=== PATIENT | male | born 1950 | race Caucasian/White ===

== ENCOUNTER 2021-02-24 16:44 | Observation (INO) ==
[2021-02-24] MEDS ORDERED: SODIUM CHLORIDE 0.9% 1000ML 500 ML IV ONE (18:09)
--- NOTE | 2021-02-24 18:16 | Emergency Department Note ---
History of Present Illness General Chief complaint: Dizziness Stated complaint: DIZZY, UNCONTROLLED DROP OF HEAD, NAUSEA Time Seen by Provider: 02/24/21 17:57 Source: patient Mode of arrival: ambulatory Limitations: no limitations History of Present Illness This patient is a 71-year-old previously healthy male who had an episode of 430 where he did not feel well. He was in his usual state of health and was sitting on the porch with his . He said his felt like his head went back uncontrolled there is no trauma he had a weird sensation like his tongue was numb on both sides and he got nauseated this last about 15 minutes he had no other associated symptom. He has had no headache neck pain or stiffness. No recent fever or chills. No focal numbness or weakness. No difficulty speaking or swallowing. No change in vision. He had no spinning sensation he felt near syncopal but did not pass out. No heart racing chest pain or shortness of breath. No pain anywhere. Denies abdominal pain or back pain. No injury. No dysuria or hematuria. No blood or melena in his stool. He did have his third Covid vaccine on Thursday. Home Medications Medication Instructions Recorded Confirmed Type atorvastatin 20 mg tablet 20 mg PO HS 10/11/19 02/24/21 History brimonidine 0.2 % eye drops 1 drops OP Q12H ml 10/11/19 02/24/21 History diltiazem HCl 300 mg 300 mg PO QAM 10/11/19 02/24/21 History capsule,extended release 24 hr hydrochlorothiazide 25 mg tablet 25 mg PO QAM 10/11/19 02/24/21 History losartan 50 mg tablet 50 mg PO QAM 10/11/19 02/24/21 History meloxicam 15 mg tablet (Mobic) 15 mg PO DAILY PRN 10/11/19 02/24/21 History vitamin E 1,000 unit capsule 2,000 unit PO QAM 02/24/21 02/24/21 History vitamins A,C,T-caal-gbqeht 14,320 1 cap PO BID 02/24/21 02/24/21 History unit-226 mg-200 unit capsule (PreserVision AREDS) Allergies Allergy/AdvReac Type Severity Reaction Status Date / Time hydrocortisone Allergy Severe Tachycardia, Unverified 02/24/21 18:09 abnormal EKG DAVID Inhibitors Allergy Intermediate Verified 02/24/21 18:07 Past Med/Surg History Medical History No pertinent past medical history Surgical History No pertinent past surgical history Social History Smoking Status: Former smoker Preferred Language: Polish Feels Safe at Home: Yes Immunizations: Past medical history hypertension. He denies history of diabetes, cardiac disease, blood clots, strokes, vascular problems, blood thi nner use Social history he is and lives locally with his . His doctors in [place]. 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 His has ALS and he cares for her at home. He does not smoke. Drinks rarely Review of Systems A total of 10 systems reviewed and were otherwise negative Physical Exam Vital Signs Vital Signs - 24 hr 02/24/21 16:48 02/24/21 17:22 02/24/21 17:23 Temperature 36.4 C L 36.8 C Temperature Source Temporal Artery Scan Oral Pulse Rate 69 Pulse Rate [Apical] 66 Pulse Rate from SpO2 Sensor Pulse Rhythm [Apical] Regular Pulse Strength [Apical] Normal Respiratory Rate 18 16 Respiratory Effort / Characteristics Non-Labored Spontaneous Non-Labored Respiratory Depth Normal Normal Blood Pressure 151/80 H Blood Pressure [Right Arm] 153/72 H Blood Pressure Mean 103 Blood Pressure Mean [Right Arm] 99 Blood Pressure Position Sitting Pulse Oximetry 98 97 97 Oxygen Delivery Method Room Air Room Air Room Air Sepsis Recent Fever Within 48 Hours No Sepsis New/Unexplained Change in Mental Status N/A Sepsis Action Taken by Nursing No Action Required 02/24/21 19:00 02/24/21 21:22 Temperature Temperature Source Pulse Rate 63 64 Pulse Rate [Apical] Pulse Rate from SpO2 Sensor 64 Pulse Rhythm [Apical] Pulse Strength [Apical] Respiratory Rate 16 18 Respiratory Effort / Characteristics Respiratory Depth Blood Pressure 145/78 H 147/80 H Blood Pressure [Right Arm] Blood Pressure Mean 100 102 Blood Pressure Mean [Right Arm] Blood Pressure Position Pulse Oximetry 98 98 Oxygen Delivery Method Sepsis Recent Fever Within 48 Hours Sepsis New/Unexplained Change in Mental Status Sepsis Action Taken by Nursing General: Well developed well nourished older male who appears in no acute distress, breathing comfortably on room air. Normal speech HEENT: Normal cephalic atraumatic. Pupils are equal round and reactive to light. Extraocular movements are intact. Oropharynx is pink with moist mucous membranes. No swelling of the mouth lips or tongue. Neck: Supple with a midline trachea. No meningeal signs or stiffness, no JVD or bruits. No Stridor. Chest: Clear to auscultation bilaterally. No wheezes or rhonchi. No increased work of breathing. Heart: Regular rate and rhythm without murmurs or gallops. Abdomen: Soft nontender, nondistended without rebound guarding or rigidity. Extremities: No cyanosis clubbing or edema. No calf tenderness or assymetry Spine/Back. Non tender to palpation. No CVA tenderness Skin: Good turgor without rashes. Neurologic exam: Cranial nerves two through 12 are intact. Motor and sensation are intact and symmetrical throughout. No tremor. Finger-nose intact. Course Administered Medications Discontinued Medications Sodium Chloride (Nss 1000ml) 500 mls @ 999 mls/hr IV .Q31M ONE Stop: 02/24/21 18:39 Last Infusion: 02/24/21 19:29 Dose: 999 mls/hr Documented by: [id number] Admin: 02/24/21 18:26 Dose: 999 mls/hr Documented by: [id number] Ioversol (Optiray 320 125ml) 119 ml IV ONCE ONE Stop: 02/24/21 19:13 Last Admin: 02/24/21 19:12 Dose: 1 ml Documented by: [id number] Potassium Chloride (Potassium Chloride Crtab 20 Meq Tabcr) 40 meq PO NOW STA Stop: 02/24/21 20:21 Last Admin: 02/24/21 21:23 Dose: 40 meq Documented by: [id number] Medical Decision Making Differential Diagnosis Near syncopal episode, arrhythmia, neurologic disease, vasovagal, TIA/CVA, vascular disease, electrolyte or metabolic abnormality, infection, anemia, reaction to Covid vaccine Medical Records Attestation: I reviewed the patient's medical records. Home Medications Current Medication List: was personally reviewed by me Laboratory Data Attestation: I reviewed the patient's lab results. Result diagrams: 02/24/21 18:27 02/24/21 18:27 Lab Results 02/24/21 02/24/21 02/24/21 Range/Units 18:20 18:27 18:27 WBC 8.91 (4.8-10.8) K/uL RBC 4.85 (4.7-6.1) M/uL Hgb 15.1 (14.0-18.0) g/dL Hct 43.8 (42-52) % MCV 90.3 (80-100) fL MCH 31.1 (25-34) pg MCHC 34.5 (32-36) g/dL RDW Std Deviation 43.9 (36.4-46.3) fL RDW Coeff of Trisha 13.3 (11.5-14.5) % Plt Count 256 (130-400) K/uL MPV 9.5 (7.4-10.4) fL Immature Gran % (Auto) 0.1 % Neut % (Auto) 70.8 % Lymph % (Auto) 18.0 % [place] % (Auto) 9.7 % Eos % (Auto) 1.2 % Baso % (Auto) 0.2 % Neut # (Auto) 6.31 (1.4-6.5) K/uL Lymph # (Auto) 1.60 (1.2-3.4) K/uL [place] # (Auto) 0.86 H (0.11-0.59) K/uL Eos # (Auto) 0.11 (0-0.5) K/uL Baso # (Auto) 0.02 (0-0.2) K/uL Immature Gran # (Auto) 0.01 (0.00-0.02) K/uL PT 11.1 (9.0-12.0) Seconds INR 1.1 (0.9-1.1) APTT 27.1 (21.0-31.0) Seconds PTT Ratio 1.0 Sodium (136-145) mmol/L Potassium (3.5-5.1) mmol/L Chloride (98-107) mmol/L Carbon Dioxide (21-32) mmol/L Anion Gap (3-11) BUN (7-18) mg/dl Creatinine (0.6-1.4) mg/dl Est Cr Clr Drug Dosing ml/min Est GFR ( Amer) ml/min Est GFR (Non-Af Amer) ml/min BUN/Creatinine Ratio (10-20) Glucose (70-99) mg/dl Calcium (8.5-10.1) mg/dl Magnesium (1.8-2.4) mg/dl Total Bilirubin (0.2-1) mg/dl AST (15-37) U/L ALT (12-78) U/L Alkaline Phosphatase (45-117) U/L Troponin I (0-0.045) ng/ml Total Protein (6.4-8.2) gm/dl Albumin (3.4-5.0) gm/dl Globulin (2.5-4.0) gm/dl Albumin/Globulin Ratio (0.9-2) TSH (0.300-4.500) uIu/ml Lyme Disease IgG Ab Negative (Negative) Lyme Disease IgM Ab Negative (Negative) COVID-19 Eval Order SARS-CoV-2 (PCR) (Negative) 02/24/21 02/24/21 02/24/21 Range/Units 18:27 Unknown Unknown WBC (4.8-10.8) K/uL RBC (4.7-6.1) M/uL Hgb (14.0-18.0) g/dL Hct (42-52) % MCV (80-100) fL MCH (25-34) pg MCHC (32-36) g/dL RDW Std Deviation (36.4-46.3) fL RDW Coeff of Trisha (11.5-14.5) % Plt Count (130-400) K/uL MPV (7.4-10.4) fL Immature Gran % (Auto) % Neut % (Auto) % Lymph % (Auto) % O[place]Brien % (Auto) % Eos % (Auto) % Baso % (Auto) % Neut # (Auto) (1.4-6.5) K/uL Lymph # (Auto) (1.2-3.4) K/uL [place]Brien # (Auto) (0.11-0.59) K/uL Eos # (Auto) (0-0.5) K/uL Baso # (Auto) (0-0.2) K/uL Immature Gran # (Auto) (0.00-0.02) K/uL PT (9.0-12.0) Seconds INR (0.9-1.1) APTT (21.0-31.0) Seconds PTT Ratio Sodium 140 (136-145) mmol/L Potassium 3.4 L (3.5-5.1) mmol/L Chloride 104 (98-107) mmol/L Carbon Dioxide 27 (21-32) mmol/L Anion Gap 9.0 (3-11) BUN 20 H (7-18) mg/dl Creatinine 1.13 (0.6-1.4) mg/dl Est Cr Clr Drug Dosing 66.8 ml/min Est GFR ( Amer) 75.9 ml/min Est GFR (Non-Af Amer) 65.5 ml/min BUN/Creatinine Ratio 17.6 (10-20) Glucose 109 H (70-99) mg/dl Calcium 9.4 (8.5-10.1) mg/dl Magnesium 2.1 (1.8-2.4) mg/dl Total Bilirubin 0.5 (0.2-1) mg/dl AST 15 (15-37) U/L ALT 34 (12-78) U/L Alkaline Phosphatase 121 H (45-117) U/L Troponin I < 0.015 (0-0.045) ng/ml Total Protein 7.6 (6.4-8.2) gm/dl Albumin 3.5 (3.4-5.0) gm/dl Globulin 4.1 H (2.5-4.0) gm/dl Albumin/Globulin Ratio 0.9 (0.9-2) TSH 0.821 (0.300-4.500) uIu/ml Lyme Disease IgG Ab (Negative) Lyme Disease IgM Ab (Negative) COVID-19 Eval Order Covid19 at [facility] SARS-CoV-2 (PCR) NEGATIVE (Negative) Imaging Data Attestation: I personally reviewed and interpreted this imaging study as follows: My Impression: Chest x-rayno acute infiltrate, failure, pneumothorax seen Radiologist's Impression: Head CT 02/24/21 18:[address] DOSE: HISTORY: Near syncope. Stroke Like Symptoms TECHNIQUE: Multiaxial CT images of the head were performed without the use of intravenous contrast. Automated exposure control was utilized for this study. A dose lowering technique was utilized adhering to the principles of ALARA. Comparison: Head CT 03/11/2018. Findings: The paranasal sinuses and mastoid air cells are clear. The calvarium and skull base are intact. There is no mass, hematoma, midline shift, acute infarct. White matter hypodensity is nonspecific but suggestive of microvascular ischemic change. The ventricles and sulci demonstrate mild age-related involutional changes. Impression: No acute intracranial abnormality. ACT 112: Negative or not required by law. Electronically signed by: Jose Mcqueen M.D. 02/24/2021 7:33 PM Head CTA 02/24/21 18:10 HEAD & NECK CTA HISTORY: Syncope Stroke Like Symptoms TECHNIQUE: Multiaxial CT images of the head were performed following the intravenous administration of contrast to evaluate the major cerebral vessels. Multiaxial CT images of the neck were also performed following the intravenous administration of contrast to evaluate the major cervical vessels. Maximum intensity projection images were also obtained. A dose lowering technique was utilized adhering to the principles of ALARA. COMPARISON: None. FINDINGS: There is no mass, hematoma, midline shift, or acute infarct. Visualized intracranial internal carotid arteries, distal vertebral arteries, and basilar artery are widely patent. There is no significant stenosis, occlusion, or aneurysm seen within the bilateral ACAs, MCAs, or skilled nursing facilities professional. Focal calcified plaque within the distal left vertebral artery. Small focal fenestration within the distal basilar artery. This is considered to be a normal variant. The major dural venous sinuses are patent. Moderate calcified plaque within the bilateral carotid siphons. There is a 2 mm aneurysm seen within the left supraclinoid ICA on image 80. The aortic arch and proximal great vessels are widely patent. There is no significant stenosis, occlusion, or dissection identified within the bilateral common carotid, internal carotid, or vertebral arteries. Mild calcified plaque within the bilateral carotid bulbs, right greater than left. IMPRESSION: 1. No significant stenosis or occlusion within the [place] of [place]. 2. No significant stenosis, occlusion, or dissection identified within the cervical carotid or vertebral arteries.. 3. 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 ACT 112: Negative or not required by law. . Electronically signed by: Jose Mcqueen M.D. 02/24/2021 7:38 PM Neck CTA 02/24/21 18:10 HEAD & NECK CTA HISTORY: Syncope Stroke Like Symptoms TECHNIQUE: Multiaxial CT images of the head were performed following the intravenous administration of contrast to evaluate the major cerebral vessels. Multiaxial CT images of the neck were also performed following the intravenous administration of contrast to evaluate the major cervical vessels. Maximum int ensity projection images were also obtained. A dose lowering technique was utilized adhering to the principles of ALARA. COMPARISON: None. FINDINGS: There is no mass, hematoma, midline shift, or acute infarct. Visualized intracranial internal carotid arteries, distal vertebral arteries, and basilar artery are widely patent. There is no significant stenosis, occlusion, or aneurysm seen within the bilateral ACAs, MCAs, or skilled nursing facilities professional. Focal calcified plaque within the distal left vertebral artery. Small focal fenestration within the distal basilar artery. This is considered to be a normal variant. The major dural venous sinuses are patent. Moderate calcified plaque within the bilateral carotid siphons. There is a 2 mm aneurysm seen within the left supraclinoid ICA on image 80. The aortic arch and proximal great vessels are widely patent. There is no significant stenosis, occlusion, or dissection identified within the bilateral common carotid, internal carotid, or vertebral arteries. Mild calcified plaque within the bilateral carotid bulbs, right greater than left. IMPRESSION: 1. No significant stenosis or occlusion within the [place]. 2. No significant stenosis, occlusion, or dissection identified within the cervical carotid or vertebral arteries.. 3. 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 ACT 112: Negative or not required by law. . Electronically signed by: Jose Mcqueen M.D. 02/24/2021 7:38 PM Chest X-Ray 02/24/21 18:11 XR chest 1V portable HISTORY: near syncope COMPARISON: None. FINDINGS: The lungs are clear. Cardiac silhouette is normal in size. No pleural effusions. No pneumothorax. IMPRESSION: No acute process. ACT 112: Negative or not required by law. Electronically signed by: Jose Mcqueen M.D. 02/24/2021 6:42 PM ECG Data Attestation: I personally reviewed and interpreted this ECG as follows: Indication: + weakness Rate (beats per minute): 64 Rhythm: + normal sinus ECG Intervals/blocks: + Normal QRS, + Normal QT and + Normal ID ECG [place]: + Normal ECG ST segments: + Normal ST segments ECG Findings: no PACs or no PVCs Comparison ECG Date: no prior available MDM Narrative This patient comes in as described above. He was placed on a cardiac catheterization technologist in room B 10. He had a brief episode where he felt unwell he was nauseated and he felt like he had some tingling in his tongue and a near syncopal. He looks well at present is asymptomatic he has no neurologic deficits. The differential diagnosis is broad and he had a full neurologic/stroke work-up as well as a cardiac work-up. He was hydrated with 500 cc IV normal saline bolus. EKG, neuro imaging ,chest x-ray multiple blood testing was obtained. He was reassessed frequently. EKG does not suggest acute coronary syndrome or arrhythmia. Troponin is negative. CAT scan of the head as well as CTA of the head and neck do not show any acute findings there is a small 2 mm aneurysm and I think this is unlikely causing his symptoms. He has no acute electrolyte or metabolic abnormalities. There is nothing to suggest liver, gallbladder, or pancreas disease. The patient has remained stable. He had this episode which could have been a TIA or could be related to vasovagal episode or an arrhythmia I do think he needs to be admitted/observe for further treatment and evaluation of consulted Dr. Bruce to see him in the ER for these measures. Continuous cardiac monitoring: Orders placed in EMR for continuous cardiac catheterization technologist. Upon my interpretation the patient was noted to be in normal sinus rhythm with a rate of 65 Impression & Plan Near syncope, Neurological deficit, transient, Weakness, Lab test negative for COVID-19 virus Discharge Plan Visit Data Chief Complaint: Dizziness Stated Complaint: DIZZY, UNCONTROLLED DROP OF HEAD, NAUSEA ED Provider: Chas Champion Discharge Problem: Near syncope, Neurological deficit, transient, Weakness, Lab test negative for COVID-19 virus Discharge Instructions Interventions: ED Discharge Assessment Last Done: 02/24/21 23:04 Forms Stand Alone Forms: My [facility] Prescriptions Prescriptions: No Action atorvastatin 20 mg tablet 20 mg PO HS RF: 0 diltiazem HCl 300 mg capsule,extended release 24hr 300 mg PO QAM RF: 0 hydrochlorothiazide 25 mg tablet 25 mg PO QAM RF: 0 losartan 50 mg tablet 50 mg PO QAM RF: 0 meloxicam [Mobic] 15 mg tablet 15 mg PO DAILY PRN (Reason: Pain) RF: 0 brimonidine 0.2 % drops 1 drops OP Q12H RF: 0 vitamin E 1,000 unit Capsule 2,000 unit PO QAM RF: 0 PreserVision AREDS [id number] Capsule 1 cap PO BID RF: 0 Referrals Referrals: Leonel Lockett MD [Primary Care Provider] -
[2021-02-24 18:37] LABS: Basophils # (auto) 0.02 K/uL (0-0.2); Basophils % (auto) 0.2 %; Eosinophils # (auto) 0.11 K/uL (0-0.5); Eosinophils % (auto) 1.2 %; Hematocrit (blood only) 43.8 % (42-52); Hemoglobin 15.1 g/dL (14.0-18.0); Immature Granulocytes # (auto) 0.01 K/uL (0.00-0.02); Immature Granulocytes % (auto) 0.1 %; Mean Corpuscular Hemoglobin 31.1 pg (25-34); Mean Corpuscular Hgb Conc 34.5 g/dL (32-36); Mean Corpuscular Volume 90.3 fL (80-100); Mean Platelet Volume 9.5 fL (7.4-10.4); Monocytes # (auto) 0.86 K/uL (0.11-0.59); Monocytes % (auto) 9.7 %; Neutrophils # (auto) 6.31 K/uL (1.4-6.5); Neutrophils % (auto) 70.8 %; Platelet Count 256 K/uL (130-400); RDW Coefficient of Variation 13.3 % (11.5-14.5); RDW Standard Deviation 43.9 fL (36.4-46.3); Red Blood Count 4.85 M/uL (4.7-6.1); White Blood Count 8.91 K/uL (4.8-10.8)
--- NOTE | 2021-02-24 18:43 | XRay Report ---
XR chest 1V portable HISTORY: near syncope COMPARISON: None. FINDINGS: The lungs are clear. Cardiac silhouette is normal in size. No pleural effusions. No pneumot horax. IMPRESSION: No acute process. ACT 112: Negative or not required by law. Electronically signed by: Jose Mcqueen M.D. 02/24/2021 6:42 PM
[2021-02-24 18:51] LABS: INR 1.1 (0.9-1.1); Partial Thromboplastin Time 27.1 Seconds (21.0-31.0); Prothrombin Time 11.1 Seconds (9.0-12.0)
[2021-02-24 18:53] LABS: Alanine Aminotransferase 34 U/L (12-78); Albumin Level 3.5 gm/dl (3.4-5.0); Aspartate Aminotransferase 15 U/L (15-37); BUN Creatinine Ratio 17.6 (10-20); Blood Urea Nitrogen 20 mg/dl (7-18); Calcium 9.4 mg/dl (8.5-10.1); Carbon Dioxide 27 mmol/L (21-32); Chloride 104 mmol/L (98-107); Creatinine Clr Calc Pharmacy 66.8 ml/min; Est GFR (African American) 75.9 ml/min; Est GFR (Non-African American) 65.5 ml/min; Glucose 109 mg/dl (70-99); Magnesium 2.1 mg/dl (1.8-2.4); Potassium 3.4 mmol/L (3.5-5.1); Sodium 140 mmol/L (136-145)
[2021-02-24 18:58] LABS: Albumin Globulin Ratio 0.9 (0.9-2); Alkaline Phosphatase 121 U/L (45-117); Bilirubin,Total 0.5 mg/dl (0.2-1); Globulin 4.1 gm/dl (2.5-4.0); Total Protein 7.6 gm/dl (6.4-8.2); Troponin I < 0.015 ng/ml (0-0.045)
[2021-02-24] MEDS ORDERED: OPTIRAY 320 125ml IV ONE (19:12)
--- NOTE | 2021-02-24 19:34 | CT Scan Report ---
HEAD CT NONCONTRAST CT DOSE: HISTORY: Near syncope. Stroke Like Symptoms TECHNIQUE: Multiaxial CT images of the head were performed without the use of intravenous contrast. A utomated exposure control was utilized for this study. A dose lowering technique was utilized adheri ng to the principles of ALARA. Comparison: Head CT 03/11/2018. Findings: The paranasal sinuses and mastoid air cells are clear. The calvarium and skull base are int act. There is no mass, hematoma, midline shift, acute infarct. White matter hypodensity is nonspecifi c but suggestive of microvascular ischemic change. The ventricles and sulci demonstrate mild age-rela niki involutional changes. Impression: No acute intracranial abnormality. ACT 112: Negative or not required by law. Electronically signed by: Jose Mcqueen M.D. 02/24/2021 7:33 PM
--- NOTE | 2021-02-24 19:39 | CT Scan Report ---
HEAD & NECK CTA HISTORY: Syncope Stroke Like Symptoms TECHNIQUE: Multiaxial CT images of the head were performed following the intravenous administration o f contrast to evaluate the major cerebral vessels. Multiaxial CT images of the neck were also perform ed following the intravenous administration of contrast to evaluate the major cervical vessels. Maxim um intensity projection images were also obtained. A dose lowering technique was utilized adhering to the principles of ALARA. COMPARISON: None. FINDINGS: There is no mass, hematoma, midline shift, or acute infarct. Visualized intracranial internal carotid arteries, distal vertebral arteries, and basilar artery are widely patent. There is no significant s tenosis, occlusion, or aneurysm seen within the bilateral ACAs, MCAs, or quality assurance calibrator. Focal calcified plaque within the distal left vertebral artery. Small focal fenestration within the distal basilar artery. This is considered to be a normal variant. The major dural venous sinuses are patent. Moderate calcif ied plaque within the bilateral carotid siphons. There is a 2 mm aneurysm seen within the left suprac linoid ICA on image 80. The aortic arch and proximal great vessels are widely patent. There is no significant stenosis, occ lusion, or dissection identified within the bilateral common carotid, internal carotid, or vertebral arteries. Mild calcified plaque within the bilateral carotid bulbs, right greater than left. IMPRESSION: 1. No significant stenosis or occlusion within the [place] of [place]. 2. No significant stenosis, occlusion, or dissection identified within the cervical carotid or verteb ral arteries.. 3. 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 ACT 112: Negative or not required by law. . Electronically signed by: Jose Mcqueen M.D. 02/24/2021 7:38 PM
--- NOTE | 2021-02-24 19:40 | CT Scan Report ---
HEAD & NECK CTA HISTORY: Syncope Stroke Like Symptoms TECHNIQUE: Multiaxial CT images of the head were performed following the intravenous administration o f contrast to evaluate the major cerebral vessels. Multiaxial CT images of the neck were also perform ed following the intravenous administration of contrast to evaluate the major cervical vessels. Maxim um intensity projection images were also obtained. A dose lowering technique was utilized adhering to the principles of ALARA. COMPARISON: None. FINDINGS: There is no mass, hematoma, midline shift, or acute infarct. Visualized intracranial internal carotid arteries, distal vertebral arteries, and basilar artery are widely patent. There is no significant s tenosis, occlusion, or aneurysm seen within the bilateral ACAs, MCAs, or core shaper sides. Focal calcified plaque within the distal left vertebral artery. Small focal fenestration within the distal basilar artery. This is considered to be a normal variant. The major dural venous sinuses are patent. Moderate calcif ied plaque within the bilateral carotid siphons. There is a 2 mm aneurysm seen within the left suprac linoid ICA on image 80. The aortic arch and proximal great vessels are widely patent. There is no significant stenosis, occ lusion, or dissection identified within the bilateral common carotid, internal carotid, or vertebral arteries. Mild calcified plaque within the bilateral carotid bulbs, right greater than left. IMPRESSION: 1. No significant stenosis or occlusion within the [place] of [place]. 2. No significant stenosis, occlusion, or dissection identified within the cervical carotid or verteb ral arteries.. 3. 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 ACT 112: Negative or not required by law. . Electronically signed by: Jose Mcqueen M.D. 02/24/2021 7:38 PM
[2021-02-24] MEDS ORDERED: POTASSIUM CHLORIDE CRTAB 20 MEQ TABCR PO STA (20:20)
[2021-02-24 21:22] LABS: Thyroid Stimulating Hormone 0.821 uIu/ml (0.300-4.500)
[2021-02-24 21:36] LABS: Lyme Ab IgG w/WB Rflx Negative (Negative)
[2021-02-24 21:37] LABS: Lyme Ab IgM w/WB Rflx Negative (Negative)
--- NOTE | 2021-02-24 21:58 | History & Physical Report ---
Date of Service February 24, 2021 Assessment & Plan (1) Near syncope: Plan: With transient tongue numbness Differentials include orthostasis, TIA, seizures hypertension, slight elevated hyperlipidemia on statin Rx OBS Medical telemetry Neurochecks Check orthostatic vitals, IVF MRI brain, EEG Further management pending work-up results Permissive hypertension until stroke ruled out DVT prophylaxis per Lovenox subcu Full code Text document was generated using Teachable voice recognition software. It may contain grammatical or spelling errors. Kindly contact undersigned for clarification of any documentation item in question. History of Present Illness Chief Complaint: Near syncope, dizziness, transient tongue numbness Primary Care Provider: Leonel Lockett MD History obtained from patient and records. Medical history significant for hypertension, hyperlipidemia, osteoarthritis, glaucoma. Patient was sitting at the porch with his when he felt his head go backwards uncontrolled. Dizziness, felt like he was going to pass out, transient tongue numbness. No headache symptoms. No prior episodes. Patient denies chest pain, S OB. No tongue biting, no incontinence. Patient received Covid 19 booster shot 2 days ago. 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 Allergies Allergy/AdvReac Type Severity Reaction Status Date / Time hydrocortisone Allergy Severe Tachycardia, Unverified 02/24/21 18:09 abnormal EKG DAVID Inhibitors Allergy Intermediate Verified 02/24/21 18:07 Home Medications Medication Instructions Recorded Confirmed Type atorvastatin 20 mg tablet 20 mg PO HS 10/11/19 02/24/21 History brimonidine 0.2 % eye drops 1 drops OP Q12H ml 10/11/19 02/24/21 History diltiazem HCl 300 mg 300 mg PO QAM 10/11/19 02/24/21 History capsule,extended release 24 hr hydrochlorothiazide 25 mg tablet 25 mg PO QAM 10/11/19 02/24/21 History losartan 50 mg tablet 50 mg PO QAM 10/11/19 02/24/21 History meloxicam 15 mg tablet (Mobic) 15 mg PO DAILY PRN 10/11/19 02/24/21 History vitamin E 1,000 unit capsule 2,000 unit PO QAM 02/24/21 02/24/21 History vitamins A,C,E-oisy-dfgezj 14,320 1 cap PO BID 02/24/21 02/24/21 History unit-226 mg-200 unit capsule (PreserVision AREDS) Past Med/Surg History Medical History No pertinent past medical history Surgical History No pertinent past surgical history Social History Smoking Status: Former smoker Second Hand Exposure: No; Hx Alcohol Use: Yes Alcohol type: beer and wine Hx Substance Use: No Preferred Language: Kazakh Beliefs That Will Affect Care: None Current Living Situation: Spouse Current Living Situation Comment: Lives at home with Other Information That Helps Us Care for You: No Feels Safe at Home: Yes Safety Concerns: Feels Safe At This Time Assistive Devices: Glasses Review of Systems Review of Systems: As per HPI, all 10 systems reviewed, all other ROS negative Physical Exam Physical Exam: GENERAL: Comfortable, pleasant, no respiratory distress SKIN: Normal color, warm HEENT: Alopecia, pink palpebral conjunctivae, no ptosis, dry buccal mucosa NECK : Supple, no tenderness CHEST : CTA, no tenderness HEART : RRR, no obvious murmurs ABDOMEN: Some distention, nontender EXTREMITIES : Healed surgical scar left lower leg, no LE swelling/tenderness, no other conspicuous deformities noted NEUROLOGIC : Coherent, no facial asymmetry, no other gross focality Results & Data Results & Data ([facility]) Vital Signs (Past 12 Hours) Vital Signs Temp Pulse Pulse Resp BP BP Pulse Ox 02/24/21 21:22 64 18 147/80 H 98 02/24/21 19:00 63 16 145/78 H 98 02/24/21 17:23 97 02/24/21 17:22 36.8 C 66 16 153/72 H 97 02/24/21 16:48 36.4 C L 69 18 151/80 H 98 Laboratory Results Laboratory Results WBC 8.91 K/uL (4.8-10.8) 02/24/21 18:27 RBC 4.85 M/uL (4.7-6.1) 02/24/21 18:27 Hgb 15.1 g/dL (14.0-18.0) 02/24/21 18: Hct 43.8 % (42-52) 02/24/21 18: MCV 90.3 fL (80-100) 02/24/21 18: MCH 31.1 pg (25-34) 02/24/21 18: MCHC 34.5 g/dL (32-36) 02/24/21 18: RDW Std Deviation 43.9 fL (36.4-46.3) 02/24/21 RDW Coeff of Trisha 13.3 % (11.5-14.5) 02/24/21 Plt Count 256 K/uL (130-400) 02/24/21 MPV 9.5 fL (7.4-10.4) 02/24/21 Immature Gran % (Auto) 0.1 % 02/24/21 Neut % (Auto) 70.8 % 02/24/21: Lymph % (Auto) 18.0 % 02/24/21 [place] % (Auto) 9.7 % 02/24/21 18: Eos % (Auto) 1.2 % 02/24/21: Baso % (Auto) 0.2 % 02/24/21 Neut # (Auto) 6.31 K/uL (1.4-6.5) 02/24/21 Lymph # (Auto) 1.60 K/uL (1.2-3.4) 02/24/21: [place] # (Auto) 0.86 K/uL (0.11-0.59) H 02/24/21: Eos # (Auto) 0.11 K/uL (0-0.5) 02/24/21: Baso # (Auto) 0.02 K/uL (0-0.2) 02/24/21 Immature Gran # (Auto) 0.01 K/uL (0.00-0.02) 02/24/21 18 PT 11.1 Seconds (9.0-12.0) 02/24/21 18: INR 1.1 (0.9-1.1) 02/24/21 18: APTT 27.1 Seconds (21.0-31.0) 02/24/21 18: PTT Ratio 1.0 02/24/21 18: Sodium 140 mmol/L (136-145) 02/24/21 18: Potassium 3.4 mmol/L (3.5-5.1) L 02/24/21 18: Chloride 104 mmol/L (98-107) 02/24/21 18: Carbon Dioxide 27 mmol/L (21-32) 02/24/21 18: Anion Gap 9.0 (3-11) 02/24/21 18: BUN 20 mg/dl (7-18) H 02/24/21 18: Creatinine 1.13 mg/dl (0.6-1.4) 02/24/21: Est Cr Clr Drug Dosing 66.8 ml/min 02/24/21 18: Est GFR ( Amer) 75.9 ml/min 02/24/21 18: Est GFR (Non-Af Amer) 65.5 ml/min 02/24/21 18: BUN/Creatinine Ratio 17.6 (10-20) 02/24/21 18: Glucose 109 mg/dl (70-99) H 02/24/21 18: Calcium 9.4 mg/dl (8.5-10.1) 02/24/21: Magnesium 2.1 mg/dl (1.8-2.4) 02/24/21 18: Total Bilirubin 0.5 mg/dl (0.2-1) 02/24/21 18: AST 15 U/L (15-37) 02/24/21 18: ALT 34 U/L (12-78) 02/24/21 18: Alkaline Phosphatase 121 U/L (45-117) H 02/24/21 18: Troponin I < 0.015 ng/ml (0-0.045) 02/24/21 18: Total Protein 7.6 gm/dl (6.4-8.2) 02/24/21 18: Albumin 3.5 gm/dl (3.4-5.0) 02/24/21 18: Globulin 4.1 gm/dl (2.5-4.0) H 02/24/21 18: Albumin/Globulin Ratio 0.9 (0.9-2) 02/24/21 18:27 TSH 0.821 uIu/ml (0.300-4.500) 02/24/21 18:27 Lyme Disease IgG Ab Negative (Negative) 02/24/21 18:20 Lyme Disease IgM Ab Negative (Negative) 02/24/21 18:20 COVID-19 Eval Order Covid19 at [facility] 02/24/[address] 02/24/21 18:[address] DOSE: HISTORY: Near syncope. Stroke Like Symptoms TECHNIQUE: Multiaxial CT images of the head were performed without the use of intravenous contrast. Automated exposure control was utilized for this study. A dose lowering technique was utilized adhering to the principles of ALARA. Comparison: Head CT 03/11/2018. Findings: The paranasal sinuses and mastoid air cells are clear. The calvarium and skull base are intact. There is no mass, hematoma, midline shift, acute infarct. White matter hypodensity is nonspecific but suggestive of microvascular ischemic change. The ventricles and sulci demonstrate mild age-related involutional changes. Impression: No acute intracranial abnormality. ACT 112: Negative or not required by law. Electronically signed by: Jose Mcqueen M.D. 02/24/2021 7:33 PM Head CTA 02/24/21 18:10 HEAD & NECK CTA HISTORY: Syncope Stroke Like Symptoms TECHNIQUE: Multiaxial CT images of the head were performed following the intravenous administration of contrast to evaluate the major cerebral vessels. Multiaxial CT images of the neck were also performed following the intravenous administration of contrast to evaluate the major cervical vessels. Maximum intensity projection images were also obtained. A dose lowering technique was utilized adhering to the principles of ALARA. COMPARISON: None. FINDINGS: There is no mass, hematoma, midline shift, or acute infarct. Visualized intracranial internal carotid arteries, distal vertebral arteries, and basilar artery are widely patent. There is no significant stenosis, occlusion, or aneurysm seen within the bilateral ACAs, MCAs, or slot host. Focal calcified plaque within the distal left vertebral artery. Small focal fenestration within the distal basilar artery. This is considered to be a normal variant. The major dural venous sinuses are patent. Moderate calcified plaque within the bilateral carotid siphons. There is a 2 mm aneurysm seen within the left supraclinoid ICA on image 80. The aortic arch and proximal great vessels are widely patent. There is no significant stenosis, occlusion, or dissection identified within the bilateral common carotid, internal carotid, or vertebral arteries. Mild calcified plaque within the bilateral carotid bulbs, right greater than left. IMPRESSION: 1. No significant stenosis or occlusion within the [place]. 2. No significant stenosis, occlusion, or dissection identified within the cervical carotid or vertebral arteries.. 3. 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 ACT 112: Negative or not required by law. . Electronically signed by: Jose Mcqueen M.D. 02/24/2021 7:38 PM Neck CTA 02/24/21 18:10 HEAD & NECK CTA HISTORY: Syncope Stroke Like Symptoms TECHNIQUE: Multiaxial CT images of the head were performed following the intravenous administration of contrast to evaluate the major cerebral vessels. Multiaxial CT images of the neck were also performed following the intravenous administration of contrast to evaluate the major cervical vessels. Maximum intensity projection images were also obtained. A dose lowering technique was utilized adhering to the principles of ALARA. COMPARISON: None. FINDINGS: There is no mass, hematoma, midline shift, or acute infarct. Visualized intracranial internal carotid arteries, distal vertebral arteries, and basilar artery are widely patent. There is no significant stenosis, occlusion, or aneurysm seen within the bilateral ACAs, MCAs, or slot host. Focal calcified plaque within the distal left vertebral artery. Small focal fenestration within the distal basilar artery. This is considered to be a normal variant. The major dural venous sinuses are patent. Moderate calcified plaque within the bilateral carotid siphons. There is a 2 mm aneurysm seen within the left supraclinoid ICA on image 80. The aortic arch and proximal great vessels are widely patent. There is no significant stenosis, occlusion, or dissection identified within the bilateral common carotid, internal carotid, or vertebral arteries. Mild calcified plaque within the bilateral carotid bulbs, right greater than left. IMPRESSION: 1. No significant stenosis or occlusion within the [place]. 2. No significant stenosis, occlusion, or dissection identified within the cervical carotid or vertebral arteries.. 3. 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 ACT 112: Negative or not required by law. . Electronically signed by: Jose Mcqueen M.D. 02/24/2021 7:38 PM Chest X-Ray 10/03/21 18:11 XR chest 1V portable HISTORY: near syncope COMPARISON: None. FINDINGS: The lungs are clear. Cardiac silhouette is normal in size. No pleural effusions. No pneumothorax. IMPRESSION: No acute process. ACT 112: Negative or not required by law. Electronically signed by: Jose Mcqueen M.D. 02/24/2021 6:42 PM Diagnostic Findings EKG as per my interpretation : Rate 65, NSR, LAD, LAFB, T wave flattening inferior leads
[2021-02-24] MEDS ORDERED: POTASSIUM CHLORIDE 40 MEQ in LACTATED RINGER'S 1,000 ML IV ONE (22:02)
[2021-02-24] MEDS ORDERED: PROMETHAZINE HCL 12.5 MG in SODIUM CHLORIDE 0.9% 50 ML IV PRN (23:50)
[2021-02-24] MEDS ORDERED: ACETAMINOPHEN 325 MG TAB PO PRN (23:50)
[2021-02-24] MEDS ORDERED: oxyCODONE HCL IR 5 MG TAB (IMMEDIATE RELEASE) PO PRN (23:50)
[2021-02-24] MEDS ORDERED: PHARMACIST DISCHARGE MED REC CONSULT PRN (23:50)
[2021-02-25] MEDS ORDERED: INFLUENZA VACCINE HIGH DOSE PF 65+ 0.7 ML SYR IM ONE (00:02)
[2021-02-25] MEDS ORDERED: BRIMONIDINE TART 0.2% OP SOLN PER DROP CHARGE OP SCH (00:15)
[2021-02-25] MEDS: BRIMONIDINE TARTRATE 0.2% 5ML OP SCH ×2 (00:27→09:47)
[2021-02-25 06:10] LABS: Basophils # (auto) 0.01 K/uL (0-0.2); Basophils % (auto) 0.1 %; Eosinophils # (auto) 0.25 K/uL (0-0.5); Eosinophils % (auto) 2.9 %; Hematocrit (blood only) 41.8 % (42-52); Hemoglobin 14.3 g/dL (14.0-18.0); Immature Granulocytes # (auto) 0.01 K/uL (0.00-0.02); Immature Granulocytes % (auto) 0.1 %; Lymphocytes # (auto) 2.59 K/uL (1.2-3.4); Lymphocytes % (auto) 29.6 %; Mean Corpuscular Hgb Conc 34.2 g/dL (32-36); Mean Corpuscular Volume 90.5 fL (80-100); Mean Platelet Volume 9.5 fL (7.4-10.4); Monocytes % (auto) 10.3 %; Neutrophils # (auto) 4.98 K/uL (1.4-6.5); Platelet Count 230 K/uL (130-400); RDW Coefficient of Variation 13.4 % (11.5-14.5); RDW Standard Deviation 43.9 fL (36.4-46.3); Red Blood Count 4.62 M/uL (4.7-6.1); White Blood Count 8.74 K/uL (4.8-10.8)
[2021-02-25 06:36] LABS: Appearance Urine Clear (Clear); Bilirubin Urine Negative (Negative); Blood Urine Negative (Negative); Color Urine Yellow; Glucose Urine UA Negative (Negative); Ketones Urine Negative (Negative); Leukocyte Esterase Urine Negative (Negative); Nitrite Urine Negative (Negative); Protein Urine Negative (Negative); Specific Gravity Urine 1.045 (1.000-1.030); Urobilinogen Urine Negative (Negative)
[2021-02-25 06:54] LABS: BUN Creatinine Ratio 15.4 (10-20); Calcium 8.9 mg/dl (8.5-10.1); Creatinine Clr Calc Pharmacy 75.4 ml/min; Est GFR (Non-African American) 75.9 ml/min; Potassium 3.4 mmol/L (3.5-5.1)
--- NOTE | 2021-02-25 07:22 | Magnetic Resonance Report ---
MR brain wo con HISTORY: 71 years-old Male tia acute headache with strokelike symptoms COMPARISON: Head CT, CTA head and neck 02/24/2021 TECHNIQUE: Multiplanar multisequence MRI of the brain was obtained without the use of IV contrast. FINDINGS: No restricted diffusion to suggest acute or subacute infarct. No acute intracranial hemorrhage, midli ne shift, abnormal extra-axial collection, hydrocephalus or intracranial mass. Coarse calcifications of the falx cerebri. Mild age-related involutional changes. Mild to moderate scattered T2/FLAIR hyper intensities are noted throughout the white matter of the cerebral hemispheres. Cerebral venous sinuses and major arterial flow voids are patent. Mastoid air cells and paranasal sin uses are clear. Prior bilateral lens repair. The skull and soft tissues are within normal limits. IMPRESSION: 1. No acute intracranial abnormality. No acute or subacute infarct. 2. Age-related involutional changes with mild to moderate chronic microvascular ischemic disease. ACT 112: Negative or not required by law. The above report was generated using voice recognition software. It may contain grammatical, syntax o r spelling errors. Electronically signed by: Slade Costa M.D. 02/25/2021 7:21 AM
[2021-02-25 07:47] LABS: Estimated Average Glucose 120 mg/dl; Hemoglobin A1C 5.8 % (4.5-5.6)
[2021-02-25] MEDS ORDERED: ENOXAPARIN INJ 40 MG/0.4 ML SYR SQ SCH (09:00)
--- NOTE | 2021-02-25 11:57 | Electroencephalogram ---
EEG Procedure Note Date of Service February 25, 2021 Start / End Times Start Time: 903 End Time: 923 Referring Physician Aries Burch MD History near syncope with transient tongue numbness Home Medication List Medication Instructions Recorded Confirmed Type atorvastatin 20 mg tablet 20 mg PO HS 10/11/19 02/24/21 History brimonidine 0.2 % eye drops 1 drops OP Q12H ml 10/11/19 02/24/21 History diltiazem HCl 300 mg 300 mg PO QAM 10/11/19 02/24/21 History capsule,extended release 24 hr hydrochlorothiazide 25 mg tablet 25 mg PO QAM 10/11/19 02/24/21 History losartan 50 mg tablet 50 mg PO QAM 10/11/19 02/24/21 History meloxicam 15 mg tablet (Mobic) 15 mg PO DAILY PRN 10/11/19 02/24/21 History vitamin E 1,000 unit capsule 2,000 unit PO QAM 02/24/21 02/24/21 History vitamins A,C,K-piqa-nhbwrw 14,320 1 cap PO BID 02/24/21 02/24/21 History unit-226 mg-200 unit capsule (PreserVision AREDS) Inpatient Medication List Brimonidine Tartrate (Brimonidine Tartrate 0.2% 5ml) 1 drops OP Q12 JUVENAL Stop: 03/27/21 00:14 Last Admin: 02/25/21 09:47 Dose: 1 drops Documented by: [id number] Admin: 02/25/21 00:27 Dose: 1 drops Documented by: [id number] Enoxaparin Sodium (Enoxaparin Inj 40 Mg/0.4 Ml Syr) 40 mg SQ QAM JUVENAL Stop: 03/27/21 08:59 Last Admin: 02/25/21 09:47 Dose: 40 mg Documented by: [id number] Discontinued Medications Sodium Chloride (Nss 1000ml) 500 mls @ 999 mls/hr IV .Q31M ONE Stop: 02/24/21 18:39 Last Infusion: 02/24/21 19:29 Dose: 999 mls/hr Documented by: [id number] Admin: 02/24/21 18:26 Dose: 999 mls/hr Documented by: [id number] Potassium Chloride 40 meq/ (Lactated Ringer's) 1,020 mls @ 80 mls/hr IV .[id number] ONE Stop: 02/25/21 10:46 Last Infusion: 02/25/21 11:09 Dose: 0 mls/hr Documented by: [id number] Admin: 02/25/21 00:27 Dose: 80 mls/hr Documented by: [id number] Ioversol (Optiray 320 125ml) 119 ml IV ONCE ONE Stop: 02/24/21 19:13 Last Admin: 02/24/21 19:12 Dose: 1 ml Documented by: [id number] Potassium Chloride (Potassium Chloride Crtab 20 Meq Tabcr) 40 meq PO NOW STA Stop: 02/24/21 20:21 Last Admin: 02/24/21 21:23 Dose: 40 meq Documented by: [id number] Description This is a 21 electrode EEG with a single channel dedicated to limited EKG. The electrodes were placed in accordance with the International 10-20 system. This EEG was done as bedside recording is of good technical quality with fewer no muscle movement artifacts Photic stimulation was performed Drowsiness and light sleep were not recorded During wakefulness rhythms were normal background rhythm in the alpha range of up to 10 Hz maximal frequency of up to 30 V maximum amplitude which is bilaterally symmetrical in maximum posterior head regions. Polymorphic mid frequency to upper frequency theta activity modest voltage is seen in a symmetrical fashion over the central regions and beta activity seen bifrontally Photic stimulation provokes a modest driving response No potentially epileptogenic activity is seen Interpretation This is a normal EEG during wakefulness no evidence for potentially epileptogenic activity focal or generalized slowing Clinical Correlation This EEG is normal during wakefulness. There is no evidence for focal generalized encephalopathy or potentially epileptogenic activity Brooks Pena MD
--- NOTE | 2021-02-25 14:22 | Electrocardiogram Report ---
Test Reason : Blood Pressure : / mmHG Vent. Rate : 064 BPM Atrial Rate : 064 BPM P-R Int : 194 ms QRS Dur : 088 ms QT Int : 426 ms P-R-T Axes : 031 -05 033 degrees QTc Int : 439 ms Normal sinus rhythm Normal ECG No previous ECGs available Confirmed by Taz Dorsey ([id number]) on 02/25/2021 2:22:36 PM Referred By: REFERRED [email or web address] Confirmed By:Gordon Dorsey
[2021-02-25] MEDS ORDERED: POTASSIUM CHLORIDE CRTAB 20 MEQ TABCR PO STA (15:03)
[2021-02-25] MEDS ORDERED: LOSARTAN POTASSIUM 50 MG TAB PO SCH (15:15)
[2021-02-25] MEDS ORDERED: STROKE PATIENT DISCHARGE STA (16:41)
--- NOTE | 2021-02-25 16:54 | Hospitalist Progress Note ---
Date of Service February 25, 2021 Assessment & Plan (1) Near syncope: Plan: With transient tongue numbness Differentials include orthostasis, TIA, seizures Neurochecks Check orthostatic vitals, IVF Permissive hypertension until stroke ruled out CT head No acute intracranial abnormality. CTA head neck 1. No significant stenosis or occlusion within the [place]. 2. No significant stenosis, occlusion, or dissection identified within the cervical carotid or vertebral arteries. 3. 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 MRI brain 1. No acute intracranial abnormality. No acute or subacute infarct. 2. Age-related involutional changes with mild to moderate chronic microvascular ischemic disease. EEG Interpretation This is a normal EEG during wakefulness no evidence for potentially epileptogenic activity focal or generalized slowing Clinical Correlation This EEG is normal during wakefulness. There is no evidence for focal generalized encephalopathy or potentially epileptogenic activity 02/25 -patient without any new symptoms, currently feeling well asymptomatic Discussed results, likely TIA and at this point would recommend to add aspirin 81 mg daily to his regimen Per patient, he used to be on aspirin before, seems like there is no contraindi cation Encouraged the patient to discuss this with his primary care doctor and/or neurologist. Hyperlipidemia on statin [facility] Full code Admission and Anticipated Discharge Date Admission Date: February 24, 2021 Subjective Patient seen in follow-up of near syncope, tongue numbness Currently denies any symptoms Specifically denies any headache, weakness, numbness in his face, feeling dizzy or lightheaded also denies any chest pain shortness of breath, abdominal pain, nausea vomiting, recent fevers or chills Review of Systems Review of Systems: All systems reviewed & are unremarkable except as noted in Subjective Physical Exam Physical Exam: GENERAL: WD/WN, M, in NAD HEENT: NC/AT, EOMI, PERRL NECK : Supple, no tenderness CHEST : CTAB, no wheezing, rhonchi, crackles HEART : RRR, no obvious murmurs ABDOMEN: + bowel sounds, soft, nontender EXTREMITIES : Healed surgical scar left lower leg, no LE swelling/tenderness, moves extremities NEUROLOGIC : Alert oriented, answering questions appropriately, no facial asymmetry, speech fluent, moves extremities spontaneously and without difficulty SKIN: Normal color, warm Results & Data Results & Data ([facility]) Vital Signs (Past 12 Hours) Vital Signs Temp Pulse Pulse Resp BP Pulse Ox 02/25/21 16:17 37.1 C 63 18 136/73 97 02/25/21 16:06 65 02/25/21 12:30 60 02/25/21 11:55 36.8 C 61 18 127/69 98 02/25/21 07:53 36.9 C 60 18 135/72 97 Laboratory Results 02/25/21 02/25/21 02/25/21 Range/Units 05:41 05:41 05:39 WBC 8.74 (4.8-10.8) K/uL RBC 4.62 L (4.7-6.1) M/uL Hgb 14.3 (14.0-18.0) g/dL Hct 41.8 L (42-52) % MCV 90.5 (80-100) fL MCH 31.0 (25-34) pg MCHC 34.2 (32-36) g/dL RDW Std Deviation 43.9 (36.4-46.3) fL RDW Coeff of Trisha 13.4 (11.5-14.5) % Plt Count 230 (130-400) K/uL MPV 9.5 (7.4-10.4) fL Immature Gran % (Auto) 0.1 % Neut % (Auto) 57.0 % Lymph % (Auto) 29.6 % [place] % (Auto) 10.3 % Eos % (Auto) 2.9 % Baso % (Auto) 0.1 % Neut # (Auto) 4.98 (1.4-6.5) K/uL Lymph # (Auto) 2.59 (1.2-3.4) K/uL [place] # (Auto) 0.90 H (0.11-0.59) K/uL Eos # (Auto) 0.25 (0-0.5) K/uL Baso # (Auto) 0.01 (0-0.2) K/uL Immature Gran # (Auto) 0.01 (0.00-0.02) K/uL PT (9.0-12.0) Seconds INR (0.9-1.1) APTT (21.0-31.0) Seconds PTT Ratio Sodium 142 (136-145) mmol/L Potassium 3.4 L (3.5-5.1) mmol/L Chloride 110 H (98-107) mmol/L Carbon Dioxide 23 (21-32) mmol/L Anion Gap 9.0 (3-11) BUN 15 (7-18) mg/dl Creatinine 1.00 (0.6-1.4) mg/dl Est Cr Clr Drug Dosing 75.4 ml/min Est GFR ( Amer) 88.0 ml/min Est GFR (Non-Af Amer) 75.9 ml/min BUN/Creatinine Ratio 15.4 (10-20) Glucose 104 H (70-99) mg/dl Estimat Average Glucose mg/dl Hemoglobin A1c (4.5-5.6) % Calcium 8.9 (8.5-10.1) mg/dl Magnesium (1.8-2.4) mg/dl Total Bilirubin (0.2-1) mg/dl AST (15-37) U/L ALT (12-78) U/L Alkaline Phosphatase (45-117) U/L Troponin I (0-0.045) ng/ml Total Protein (6.4-8.2) gm/dl Albumin (3.4-5.0) gm/dl Globulin (2.5-4.0) gm/dl Albumin/Globulin Ratio (0.9-2) Triglycerides 146 (0-150) mg/dl Cholesterol 102 (0-200) mg/dl LDL Cholesterol, Calc 35 mg/dl VLDL Cholesterol, Calc 29 mg/dl HDL Cholesterol 38 mg/dl Cholesterol/HDL Ratio 3 TSH (0.300-4.500) uIu/ml Urine Color Yellow Urine Appearance Clear (Clear) Urine pH 6.0 (4.5-7.5) Ur Specific [place] 1.045 H (1.000-1.030) Urine Protein Negative (Negative) Urine Glucose (UA) Negative (Negative) Urine Ketones Negative (Negative) Urine Blood Negative (Negative) Urine Nitrite Negative (Negative) Urine Bilirubin Negative (Negative) Urine Urobilinogen Negative (Negative) Ur Leukocyte Esterase Negative (Negative) Lyme Disease IgG Ab (Negative) Lyme Disease IgM Ab (Negative) COVID-19 Eval Order SARS-CoV-2 (PCR) (Negative) 02/24/21 02/24/21 02/24/21 Range/Units Unknown Unknown 20:49 WBC (4.8-10.8) K/uL RBC (4.7-6.1) M/uL Hgb (14.0-18.0) g/dL Hct (42-52) % MCV (80-100) fL MCH (25-34) pg MCHC (32-36) g/dL RDW Std Deviation (36.4-46.3) fL RDW Coeff of Trisha (11.5-14.5) % Plt Count (130-400) K/uL MPV (7.4-10.4) fL Immature Gran % (Auto) % Neut % (Auto) % Lymph % (Auto) % [place] % (Auto) % Eos % (Auto) % Baso % (Auto) % Neut # (Auto) (1.4-6.5) K/uL Lymph # (Auto) (1.2-3.4) K/uL [place] # (Auto) (0.11-0.59) K/uL Eos # (Auto) (0-0.5) K/uL Baso # (Auto) (0-0.2) K/uL Immature Gran # (Auto) (0.00-0.02) K/uL PT (9.0-12.0) Seconds INR (0.9-1.1) APTT (21.0-31.0) Seconds PTT Ratio Sodium (136-145) mmol/L Potassium (3.5-5.1) mmol/L Chloride (98-107) mmol/L Carbon Dioxide (21-32) mmol/L Anion Gap (3-11) BUN (7-18) mg/dl Creatinine (0.6-1.4) mg/dl Est Cr Clr Drug Dosing ml/min Est GFR ( Amer) ml/min Est GFR (Non-Af Amer) ml/min BUN/Creatinine Ratio (10-20) Glucose (70-99) mg/dl Estimat Average Glucose 120 mg/dl Hemoglobin A1c 5.8 H (4.5-5.6) % Calcium (8.5-10.1) mg/dl Magnesium (1.8-2.4) mg/dl Total Bilirubin (0.2-1) mg/dl AST (15-37) U/L ALT (12-78) U/L Alkaline Phosphatase (45-117) U/L Troponin I (0-0.045) ng/ml Total Protein (6.4-8.2) gm/dl Albumin (3.4-5.0) gm/dl Globulin (2.5-4.0) gm/dl Albumin/Globulin Ratio (0.9-2) Triglycerides (0-150) mg/dl Cholesterol (0-200) mg/dl LDL Cholesterol, Calc mg/dl VLDL Cholesterol, Calc mg/dl HDL Cholesterol mg/dl Cholesterol/HDL Ratio TSH (0.300-4.500) uIu/ml Urine Color Urine Appearance (Clear) Urine pH (4.5-7.5) Ur Specific [place] (1.000-1.030) Urine Protein (Negative) Urine Glucose (UA) (Negative) Urine Ketones (Negative) Urine Blood (Negative) Urine Nitrite (Negative) Urine Bilirubin (Negative) Urine Urobilinogen (Negative) Ur Leukocyte Esterase (Negative) Lyme Disease IgG Ab (Negative) Lyme Disease IgM Ab (Negative) COVID-19 Eval Order Covid19 at [facility] SARS-CoV-2 (PCR) NEGATIVE (Negative) 02/24/21 02/24/21 02/24/21 Range/Units 18:27 18:27 18:27 WBC 8.91 (4.8-10.8) K/uL RBC 4.85 (4.7-6.1) M/uL Hgb 15.1 (14.0-18.0) g/dL Hct 43.8 (42-52) % MCV 90.3 (80-100) fL MCH 31.1 (25-34) pg MCHC 34.5 (32-36) g/dL RDW Std Deviation 43.9 (36.4-46.3) fL RDW Coeff of Trisha 13.3 (11.5-14.5) % Plt Count 256 (130-400) K/uL MPV 9.5 (7.4-10.4) fL Immature Gran % (Auto) 0.1 % Neut % (Auto) 70.8 % Lymph % (Auto) 18.0 % [place] % (Auto) 9.7 % Eos % (Auto) 1.2 % Baso % (Auto) 0.2 % Neut # (Auto) 6.31 (1.4-6.5) K/uL Lymph # (Auto) 1.60 (1.2-3.4) K/uL [place] # (Auto) 0.86 H (0.11-0.59) K/uL Eos # (Auto) 0.11 (0-0.5) K/uL Baso # (Auto) 0.02 (0-0.2) K/uL Immature Gran # (Auto) 0.01 (0.00-0.02) K/uL PT 11.1 (9.0-12.0) Seconds INR 1.1 (0.9-1.1) APTT 27.1 (21.0-31.0) Seconds PTT Ratio 1.0 Sodium 140 (136-145) mmol/L Potassium 3.4 L (3.5-5.1) mmol/L Chloride 104 (98-107) mmol/L Carbon Dioxide 27 (21-32) mmol/L Anion Gap 9.0 (3-11) BUN 20 H (7-18) mg/dl Creatinine 1.13 (0.6-1.4) mg/dl Est Cr Clr Drug Dosing 66.8 ml/min Est GFR ( Amer) 75.9 ml/min Est GFR (Non-Af Amer) 65.5 ml/min BUN/Creatinine Ratio 17.6 (10-20) Glucose 109 H (70-99) mg/dl Estimat Average Glucose mg/dl Hemoglobin A1c (4.5-5.6) % Calcium 9.4 (8.5-10.1) mg/dl Magnesium 2.1 (1.8-2.4) mg/dl Total Bilirubin 0.5 (0.2-1) mg/dl AST 15 (15-37) U/L ALT 34 (12-78) U/L Alkaline Phosphatase 121 H (45-117) U/L Troponin I < 0.015 (0-0.045) ng/ml Total Protein 7.6 (6.4-8.2) gm/dl Albumin 3.5 (3.4-5.0) gm/dl Globulin 4.1 H (2.5-4.0) gm/dl Albumin/Globulin Ratio 0.9 (0.9-2) Triglycerides (0-150) mg/dl Cholesterol (0-200) mg/dl LDL Cholesterol, Calc mg/dl VLDL Cholesterol, Calc mg/dl HDL Cholesterol mg/dl Cholesterol/HDL Ratio TSH 0.821 (0.300-4.500) uIu/ml Urine Color Urine Appearance (Clear) Urine pH (4.5-7.5) Ur Specific [place] (1.000-1.030) Urine Protein (Negative) Urine Glucose (UA) (Negative) Urine Ketones (Negative) Urine Blood (Negative) Urine Nitrite (Negative) Urine Bilirubin (Negative) Urine Urobilinogen (Negative) Ur Leukocyte Esterase (Negative) Lyme Disease IgG Ab (Negative) Lyme Disease IgM Ab (Negative) COVID-19 Eval Order SARS-CoV-2 (PCR) (Negative) 02/24/21 Range/Units 18:20 WBC (4.8-10.8) K/uL RBC (4.7-6.1) M/uL Hgb (14.0-18.0) g/dL Hct (42-52) % MCV (80-100) fL MCH (25-34) pg MCHC (32-36) g/dL RDW Std Deviation (36.4-46.3) fL RDW Coeff of Trisha (11.5-14.5) % Plt Count (130-400) K/uL MPV (7.4-10.4) fL Immature Gran % (Auto) % Neut % (Auto) % Lymph % (Auto) % [place] % (Auto) % Eos % (Auto) % Baso % (Auto) % Neut # (Auto) (1.4-6.5) K/uL Lymph # (Auto) (1.2-3.4) K/uL [place] # (Auto) (0.11-0.59) K/uL Eos # (Auto) (0-0.5) K/uL Baso # (Auto) (0-0.2) K/uL Immature Gran # (Auto) (0.00-0.02) K/uL PT (9.0-12.0) Seconds INR (0.9-1.1) APTT (21.0-31.0) Seconds PTT Ratio Sodium (136-145) mmol/L Potassium (3.5-5.1) mmol/L Chloride (98-107) mmol/L Carbon Dioxide (21-32) mmol/L Anion Gap (3-11) BUN (7-18) mg/dl Creatinine (0.6-1.4) mg/dl Est Cr Clr Drug Dosing ml/min Est GFR ( Amer) ml/min Est GFR (Non-Af Amer) ml/min BUN/Creatinine Ratio (10-20) Glucose (70-99) mg/dl Estimat Average Glucose mg/dl Hemoglobin A1c (4.5-5.6) % Calcium (8.5-10.1) mg/dl Magnesium (1.8-2.4) mg/dl Total Bilirubin (0.2-1) mg/dl AST (15-37) U/L ALT (12-78) U/L Alkaline Phosphatase (45-117) U/L Troponin I (0-0.045) ng/ml Total Protein (6.4-8.2) gm/dl Albumin (3.4-5.0) gm/dl Globulin (2.5-4.0) gm/dl Albumin/Globulin Ratio (0.9-2) Triglycerides (0-150) mg/dl Cholesterol (0-200) mg/dl LDL Cholesterol, Calc mg/dl VLDL Cholesterol, Calc mg/dl HDL Cholesterol mg/dl Cholesterol/HDL Ratio TSH (0.300-4.500) uIu/ml Urine Color Urine Appearance (Clear) Urine pH (4.5-7.5) Ur Specific [place] (1.000-1.030) Urine Protein (Negative) Urine Glucose (UA) (Negative) Urine Ketones (Negative) Urine Blood (Negative) Urine Nitrite (Negative) Urine Bilirubin (Negative) Urine Urobilinogen (Negative) Ur Leukocyte Esterase (Negative) Lyme Disease IgG Ab Negative (Negative) Lyme Disease IgM Ab Negative (Negative) COVID-19 Eval Order SARS-CoV-2 (PCR) (Negative) Medications Administered Current Inpatient Medications Acetaminophen (Acetaminophen 325 Mg Tab) 650 mg PO Q4H PRN PRN Reason: Pain or Fever Stop: 03/26/21 23:49 Atorvastatin Calcium (Atorvastatin 20 Mg Tab) 20 mg PO HS JUVENAL Stop: 03/27/21 20:59 Brimonidine Tartrate (Brimonidine Tartrate 0.2% 5ml) 1 drops OP Q12 JUVENAL Stop: 03/27/21 00:14 Last Admin: 02/25/21 09:47 Dose: 1 drops Documented by: Enoxaparin Sodium (Enoxaparin Inj 40 Mg/0.4 Ml Syr) 40 mg SQ QAM JUVENAL Stop: 03/27/21 08:59 Last Admin: 02/25/21 09:47 Dose: 40 mg Documented by: Promethazine HCl 12.5 mg/ (Sodium Chloride) 50.5 mls @ 202 mls/hr IV Q6H PRN PRN Reason: Nausea And Vomiting Stop: 03/26/21 23:49 Losartan Potassium (Losartan Potassium 50 Mg Tab) 50 mg PO QAM JUVENAL Stop: 03/27/21 15:14 Last Admin: 02/25/21 16:19 Dose: 50 mg Documented by: Miscellaneous Information (Stroke Patient Discharge) 1 ea N/A NOW STA Stop: 02/25/21 16:42 Oxycodone HCl (Oxycodone Hcl Ir 5 Mg Tab (Immediate Release)) 5 mg PO Q4H PRN PRN Reason: Pain Stop: 03/10/21 23:49
--- NOTE | 2021-02-25 16:58 | Discharge Summary ---
Date of Service February 25, 2021 Admission HPI Per Admitting Provider History obtained from patient and records. Medical history significant for hypertension, hyperlipidemia, osteoarthritis, glaucoma. Patient was sitting at the porch with his when he felt his head go backwards uncontrolled. Dizziness, felt like he was going to pass out, transient tongue numbness. No headache symptoms. No prior episodes. Patient denies chest pain, S OB. No tongue biting, no incontinence. Patient received Covid 19 booster shot 2 days ago. 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 Admission Exam Per Admitting Provider GENERAL: Comfortable, pleasant, no respiratory distress SKIN: Normal color, warm HEENT: Alopecia, pink palpebral conjunctivae, no ptosis, dry buccal mucosa NECK : Supple, no tenderness CHEST : CTA, no tenderness HEART : RRR, no obvious murmurs ABDOMEN: Some distention, nontender EXTREMITIES : Healed surgical scar left lower leg, no LE swelling/tenderness, no other conspicuous deformities noted NEUROLOGIC : Coherent, no facial asymmetry, no other gross focality Principal Diagnosis Possible TIA Discharge Exam GENERAL: WD/WN, M, in NAD HEENT: NC/AT, EOMI, PERRL NECK : Supple, no tenderness CHEST : CTAB, no wheezing, rhonchi, crackles HEART : RRR, no obvious murmurs ABDOMEN: + bowel sounds, soft, nontender EXTREMITIES : Healed surgical scar left lower leg, no LE swelling/tenderness, moves extremities NEUROLOGIC : Alert oriented, answering questions appropriately, no facial asymmetry, speech fluent, moves extremities spontaneously and without difficulty SKIN: Normal color, warm Discharge Data Allergies Allergy/AdvReac Type Severity Reaction Status Date / Time hydrocortisone Allergy Severe Tachycardia, Unverified 02/24/21 18:09 abnormal EKG DAVID Inhibitors Allergy Intermediate Verified 02/24/21 18:07 Consultations 02/24/21 21:38 ED Decision to Admit Stat Ordered Studies 02/24/21 18:10 CT angio head w con Stat CT angio neck with con Stat CT head/brain wo con Stat 02/24/21 21:58 MR brain wo con Urgent Hospital Course (1) Near syncope: With transient tongue numbness Differentials include orthostasis, TIA, seizures Neurochecks Check orthostatic vitals, IVF Permissive hypertension until stroke ruled out CT head No acute intracranial abnormality. CTA head neck 1. No significant stenosis or occlusion within the [place]. 2. No significant stenosis, occlusion, or dissection identified within the cervical carotid or vertebral arteries. 3. 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 MRI brain 1. No acute intracranial abnormality. No acute or subacute infarct. 2. Age-related involutional changes with mild to moderate chronic microvascular ischemic disease. EEG Interpretation This is a normal EEG during wakefulness no evidence for potentially epile ptogenic activity focal or generalized slowing Clinical Correlation This EEG is normal during wakefulness. There is no evidence for focal generalized encephalopathy or potentially epileptogenic activity 02/25 -patient without any new symptoms, currently feeling well asymptomatic Discussed results, likely TIA and at this point would recommend to add aspirin 81 mg daily to his regimen Per patient, he used to be on aspirin before, seems like there is no contraindication Encouraged the patient to discuss this with his primary care doctor and/or n eurologist. Hyperlipidemia on statin Rx LDL 35, at goal (<70) Current hgb A1c 5.8% Total Time Total Time Spent Total Time Spent (In Minutes): 35 Discharge Plan Discharge Items Patient Disposition: Home - Self-Care Reason For Visit: NEAR SYNCOPE, TIA Discharge Diagnosis: Possible TIA Activity: Per Instructions section Non-emergency contact: Primary Care Provider Call non-emergency contact if: you have any medication questions and your symptoms worsen Follow-up/Referrals: Leonel Lockett MD [Primary Care Provider] - 02/26/21 2:30 pm (This is a video appointment as previously scheduled) Diet: Heart Healthy Addtl Attending Provider Instructions: Follow up with your primary care doctor, the appointment was already scheduled for February 26. You will also need follow-up for small (2 mm ) aneurysm found on your CTA of your head. Would recommend daily aspirin 81 mg, discuss this with your primary care doctor or neurologist. Pending Studies at Discharge: No Stand-Alone Forms: Medications to Prevent Stroke, [employer], Smoking Cessation Medications and DC Order Prescriptions: New aspirin 81 mg tablet,delayed release (DR/EC) 81 mg PO DAILY Qty: 30 RF: 0 Continued atorvastatin 20 mg tablet 20 mg PO HS RF: 0 diltiazem HCl 300 mg capsule,extended release 24hr 300 mg PO QAM RF: 0 hydrochlorothiazide 25 mg tablet 25 mg PO QAM RF: 0 losartan 50 mg tablet 50 mg PO QAM RF: 0 meloxicam [Mobic] 15 mg tablet 15 mg PO DAILY PRN (Reason: Pain) RF: 0 brimonidine 0.2 % drops 1 drops OP Q12H RF: 0 vitamin E 1,000 unit Capsule 2,000 unit PO QAM RF: 0 PreserVision AREDS [id number] Capsule 1 cap PO BID RF: 0 Discharge Orders: Discharge Order (Routine); Ordered 02/25/21 Ordered By: Jordy Dawn Admission Data Admit Date/Time: 02/24/21 22:00 Attending Provider: Jordy Dawn Admit Provider: Aries Quach Primary Care Provider: Leonel Lockett Other Providers: Aries Quach
--- NOTE | 2021-02-25 17:03 | Pharmacy Report ---
Pharmacist Stroke Counseling - Date of Service February 25, 2021 - Scope: Pharmacy has been consulted to provide medication discharge counseling for this patient admitted with transient ischemic attack as per the Pharmacist Discharge Counseling for Stroke Patients Protocol. - Medications on Discharge: Home Medications Medication Instructions Recorded Confirmed atorvastatin 20 mg tablet 20 mg PO HS 10/11/19 02/24/21 brimonidine 0.2 % eye drops 1 drops OP Q12H ml 10/11/19 02/24/21 diltiazem HCl 300 mg 300 mg PO QAM 10/11/19 02/24/21 capsule,extended release 24 hr hydrochlorothiazide 25 mg tablet 25 mg PO QAM 10/11/19 02/24/21 losartan 50 mg tablet 50 mg PO QAM 10/11/19 02/24/21 meloxicam 15 mg tablet (Mobic) 15 mg PO DAILY PRN 10/11/19 02/24/21 vitamin E 1,000 unit capsule 2,000 unit PO QAM 02/24/21 02/24/21 vitamins A,C,[id number]-[id number]-pndofp 14,320 1 cap PO BID 02/24/21 02/24/21 unit-226 mg-200 unit capsule (PreserVision AREDS) New Rx's Medication Instructions Recorded aspirin 81 mg tablet,delayed 81 mg PO DAILY #30 tab 02/25/21 release - Action: The above medications, specifically ones for stroke treatment/prophylaxis, have been reviewed in detail with the patient and/or patient internet sales representative(s) prior to discharge. This includes indication, common adverse reactions, drug interactions, and medication administration. Medication counseling has been employed using the teach-back method to ensure understanding. - Outcome: The patient and/or patient internet sales representative(s) have demonstrated understanding of the medications. Thank you for allowing pharmacy to be involved in the care of this patient. Please call [phone] with any additional questions
[2021-02-25] MEDS ORDERED: ATORVASTATIN 20 MG TAB PO SCH (21:00)
== END 2021-02-25 06:30 | disposition home or self-care (01) ==
LOC: ED 16:44 → 2N 16:44